=== PATIENT | female | born 1970 | race African-American/Black ===

== ENCOUNTER 2018-08-27 06:43 | Day surgery (SDC) | payer OTHER ==
[~2018-08-27 06:43] MED LIST: CEFAZOLIN 1 GM/50 ML (PMX) 50 ML IVPB; SOD CHLORIDE 0.9% 1,000 ML IV
[2018-08-27 07:44] LABS: ADD MAN DIFF? NO
[2018-08-27 07:45] LABS: BASOPHILS % 0.5 % (0.0-2.0); EOSINOPHILS # 0.1 10^3/ul (0.0-0.5); EOSINOPHILS % 1.5 % (0.0-7.0); HEMOGLOBIN 10.3 g/dl (12.0-16.0); LYMPHOCYTES # 1.7 10^3/ul (0.8-2.9); LYMPHOCYTES % 30.9 % (15.0-51.0); MEAN CORPUSCULAR HEMOGLOBIN 24.6 pg (29.0-33.0); MEAN CORPUSCULAR HGB CONC 30.3 g/dl (32.0-37.0); MEAN CORPUSCULAR VOLUME 81.1 fl (82.0-101.0); MEAN PLATELET VOLUME 8.4 fl (7.4-10.4); MONOCYTE # 0.5 10^3/ul (0.3-0.9); MONOCYTES % 8.8 % (0.0-11.0); NEUTROPHIL # 3.2 10^3/ul (1.6-7.5); NEUTROPHILS % 57.9 % (39.0-77.0); PLATELET COUNT 370 10^3/UL (140-415); RED BLOOD COUNT 4.19 10^6/ul (4.20-5.40); RED CELL DISTRIBUTION WIDTH 15.9 % (11.5-14.5)
[2018-08-27 07:45] LABS: WHITE BLOOD COUNT 5.5 10^3/ul (4.8-10.8)
[2018-08-27 08:04] LABS: ALBUMIN/GLOBULIN RATIO 1.33; ANION GAP 11 (5-13); Estimated GFR > 60 mL/min (>60)
[2018-08-27 08:05] LABS: INR 0.94; PROTIME 12.7 Sec (11.9-14.9)
[2018-08-27 08:06] LABS: PARTIAL THROMBOPLASTIN TIME 26.6 Sec (23.0-35.0)
[2018-08-27 08:07] LABS: ALANINE AMINOTRANSFERASE 11 IU/L (13-69); ALBUMIN 4.4 g/dl (3.3-4.9); ALKALINE PHOSPHATASE 61 IU/L (42-121); ASPARTATE AMINO TRANSFERASE 20 IU/L (15-46); BILIRUBIN,INDIRECT 0.2 mg/dl (0-1.1); BILIRUBIN,TOTAL 0.2 mg/dl (0.2-1.3); BLOOD UREA NITROGEN 14 mg/dl (7-20); CALCIUM 9.4 mg/dl (8.4-10.2); CARBON DIOXIDE 22 mmol/L (21-31); CHLORIDE 109 mmol/L (97-110); CREATININE 0.77 mg/dl (0.44-1.00); GLUCOSE 93 mg/dl (70-220); POTASSIUM 4.4 mmol/L (3.5-5.1); SODIUM 142 mmol/L (135-144); TOTAL PROTEIN 7.7 g/dl (6.1-8.1)
[2018-08-27] MEDS ORDERED: LIDOCAINE 2% (SDV) 5 ML INJ (13:10)
[2018-08-27] MEDS ORDERED: PROPOFOL 20 ML ×5 (13:10→13:47)
[2018-08-27] MEDS ORDERED: FENTAnyl 50 MCG/ML VIAL ×2 (13:11→14:12)
[2018-08-27] MEDS ORDERED: CEFAZOLIN 1 GM INJ (13:21)
[2018-08-27] MEDS ORDERED: ONDANSETRON 4 MG INJ (13:32)
[2018-08-27] MEDS ORDERED: DEXAMETHASONE 4 MG/ML 5 ML INJ (13:32)
[2018-08-27] MEDS ORDERED: FAMOTIDINE 20 MG INJ (13:32)
[2018-08-27] MEDS ORDERED: GLYCOPYRROLATE 0.4 MG INJ (13:46)
[2018-08-27] MEDS ORDERED: HYDROCODONE/APAP (7.5/325) TAB PO (14:00)
[2018-08-27] MEDS ORDERED: HYDROmorphONE 2 MG/ML SYG (14:01)
[2018-08-27] MEDS: FENTAnyl 50 MCG/ML VIAL IV ×3 (14:13→14:29)
[2018-08-27] MEDS: MEPERIDINE 25 MG INJ IV (14:22)
[2018-08-27] MEDS: ONDANSETRON 4 MG INJ IV (14:22)
[2018-08-27] MEDS ORDERED: hydrALAzine 20 MG INJ IV (14:30)
[2018-08-27] MEDS ORDERED: HYDROmorphONE 1 MG/5 ML IV SYRINGE IV ×2 (14:30)
[2018-08-27] MEDS ORDERED: OXYCODONE/ACETAMINOPHEN (5/325) TAB PO (14:30)
[2018-08-27] MEDS ORDERED: MIDAZOLAM 1 MG/ML 2 ML INJ IV (14:30)
[2018-08-27] MEDS ORDERED: LABETALOL HCL 20MG INJ IV (14:30)
[2018-08-27] MEDS: KETOROLAC 30 MG INJ IV (14:35)
== END 2018-08-27 16:05 | disposition home or self-care (01) ==
LOC: SDS 06:43
DX: N60.22 Fibroadenosis of left breast (principal); N60.12 Diffuse cystic mastopathy of left breast; I10 Essential (primary) hypertension
CPT/HCPCS: 19120; 80053; 84703; 85025; 85610; 85730; 88307